=== PATIENT | female | born 1980 | race Two or more races ===

== ENCOUNTER 2021-11-23 08:53 | Outpatient (CLI) | payer OTHER | END 2021-11-23 09:01 | disposition home or self-care (01) | LOC: MAMO-SONO 08:53 | DX: Z12.31 Encounter for screening mammogram for malignant neoplasm of breast (principal) ==

== ENCOUNTER 2021-11-24 13:11 | Outpatient (CLI) | payer OTHER | END 2021-11-24 14:25 | disposition home or self-care (01) | LOC: SONOGRAMA 13:11 | DX: E04.1 Nontoxic single thyroid nodule (principal); D25.9 Leiomyoma of uterus, unspecified ==